=== PATIENT | female | born 1985 | race Caucasian/White ===

== ENCOUNTER 2021-02-13 10:42 | Emergency (ER) | payer SELFPAY ==
--- NOTE | 2021-02-13 11:20 | EDM.PDOC ---
ED HPI GENERAL MEDICAL PROBLEM - General Chief Complaint: DIGESTER HAND Problem Stated Complaint: [facility] Time Seen by Provider: 02/13/21 10:46 Source of Information: Reports: Patient, EMS, RN Notes Reviewed History Limitations: Reports: No Limitations - History of Present Illness INITIAL COMMENTS - FREE TEXT/NARRATIVE: Brought in by ambulance with acute onset of left lower pelvic pain. Onset was about 7:00 this morning woke her up. Very sharp stabbing constant pain. Not associated with any fevers or chills. She received some fentanyl in the prehospital and did not really help. She denies having had any obvious fevers or chills may be some cold sweats with the pain nauseated but no vomiting no bowel changes. No burning pain or blood in the urine denies has had regular normal cycles. She did states that she has had an ovarian torsion before but never required any surgical treatment. She has had a cholecystectomy appendectomy and 2 C-sections. Currently denies any fevers chills or sweats no runny nose or sore throat no coughing cold symptoms or chest pain. No known allergies. Pain is sharp constant nothing makes it better or worse - Related Data Allergies Allergy/AdvReac Type Severity Reaction Status Date / Time metoclopramide [From Reglan] Allergy Wheezing Verified 02/13/21 10:54 NSAIDS (Non-Steroidal Allergy Wheezing Verified 02/13/21 10:54 Anti-Inflamma Penicillins Allergy Wheezing Verified 02/13/21 10:54 Home Meds: Home Meds . [No Known Home Meds] 02/13/21 [History] Past Medical History HEENT History: Reports: Other (See Below) Other HEENT History: glasses - Past Surgical History Female Surgical History: Reports: Other (See Below) Other Female Surgeries/Procedures: hx of ovarian cysts 2 years ago to LT side, right twisted ovary surgery Social & Family History - Tobacco Use Tobacco Use Status *Q: Never Tobacco User Second Hand Smoke Exposure: No - Caffeine Use Caffeine Use: Reports: Coffee - Recreational Drug Use Recreational Drug Use: No ED ROS GENERAL - Review of Systems Review Of Systems: See Below Constitutional: Reports: Diaphoresis. Denies: Fever, Chills HEENT: Denies: Rhinitis, Throat Pain Respiratory: Denies: Shortness of Breath, Cough Cardiovascular: Denies: Chest Pain, Dyspnea on Exertion GI/Abdominal: Reports: Abdominal Pain, Nausea. Denies: Bloody Stool, Diarrhea, Vomiting : Denies: Dysuria Musculoskeletal: Reports: No Symptoms Skin: Reports: No Symptoms Neurological: Reports: No Symptoms Psychiatric: Reports: Anxiety ED EXAM, RENAL/ - Physical Exam Exam: See Below Exam Limited By: No Limitations General Appearance: Alert, WD/WN, No Apparent Distress, Moderate Distress Throat/Mouth: Normal Oropharynx Head: Atraumatic Respiratory/Chest: No Respiratory Distress, Lungs Clear, Normal Breath Sounds Cardiovascular: Normal Peripheral Pulses, Regular Rate, Rhythm, No Edema GI/Abdominal: Normal Bowel Sounds, Soft, Tender, Other (Patient has a left lower pelvic pain. Nothing makes it better or worse sharp constant, no flank pain noted. No rebound or rigidity). No: Guarding, Rebound Back Exam: Normal Inspection Extremities: Normal Inspection Neurological: Alert, Oriented Psychiatric: Anxious Course - Vital Signs Text/Narrative:: Cute onset of pelvic pain rule out torsion, ovarian cyst, seems unlikely diverticulitis no GI symptoms currently. We will treated with pain, ultrasound labs ordered. Last Recorded V/S: Last Vital Signs Temp 98.6 F 02/13/21 10:47 Pulse 105 H 02/13/21 10:47 Resp 20 02/13/21 10:47 BP 114/67 02/13/21 10:47 Pulse Ox 98 02/13/21 10:47 - Orders/Labs/Meds Orders: Active Orders 24 hr Category Date Time Status Abdomen Pelvis wo Cont [CT] Stat Exams 02/13/21 14:27 Ordered CULTURE URINE [MREF] Stat Lab 02/13/21 11:40 Received Labs: Laboratory Tests 02/13/21 02/13/21 02/13/21 Range/Units 11:03 11:40 11:40 WBC (3.98-10.04) K/mm3 RBC (3.98-5.22) M/mm3 Hgb (11.2-15.7) gm/dl Hct (34.1-44.9) % MCV (79.4-94.8) fl MCH (25.6-32.2) pg MCHC (32.2-35.5) g/dl RDW Std Deviation (36.4-46.3) fL Plt Count (182-369) K/mm3 MPV (9.4-12.3) fl Neut % (Auto) (34.0-71.1) % Lymph % (Auto) (19.3-51.7) % [place] % (Auto) (4.7-12.5) % Eos % (Auto) (0.7-5.8) Baso % (Auto) (0.1-1.2) % Neut # (Auto) (1.56-6.13) K/mm3 Lymph # (Auto) (1.18-3.74) K/mm3 [place] # (Auto) (0.24-0.36) K/mm3 Eos # (Auto) (0.04-0.36) K/mm3 Baso # (Auto) (0.01-0.08) K/mm3 Sodium (136-145) mEq/L Potassium (3.5-5.1) mEq/L Chloride (98-107) mEq/L Carbon Dioxide (21-32) mEq/L Anion Gap (5-15) BUN (7-18) mg/dL Creatinine (0.55-1.02) mg/dL Est Cr Clr Drug Dosing mL/min Estimated GFR (MDRD) (>60) mL/min BUN/Creatinine Ratio (14-18) Glucose (70-99) mg/dL Calcium (8.5-10.1) mg/dL Total Bilirubin (0.2-1.0) mg/dL AST (15-37) U/L ALT (14-59) U/L Alkaline Phosphatase (46-116) U/L Total Protein (6.4-8.2) g/dl Albumin (3.4-5.0) g/dl Globulin gm/dL Albumin/Globulin Ratio (1-2) Urine Color Yellow (Yellow) Urine Appearance Slt cloudy H (Clear) Urine pH 6.0 (5.0-8.0) Ur Specific [place] 1.025 (1.005-1.030) Urine Protein Trace H (Negative) Urine Glucose (UA) Negative (Negative) Urine Ketones Negative (Negative) Urine Occult Blood 3+ H (Negative) Urine Nitrite Negative (Negative) Urine Bilirubin Negative (Negative) Urine Urobilinogen 0.2 (0.2-1.0) Ur Leukocyte Esterase 1+ H (Negative) Urine RBC 50-75 H (0-5) /hpf Urine WBC 0-5 (0-5) /hpf Ur Epithelial Cells 5-10 H (0-5) /hpf Urine Bacteria Few (FEW) /hpf Urine Mucus Few (FEW) /hpf Urine HCG, Qual Negative (NEGATIVE) SARS-CoV-2 RNA (SILVANO) Negative (NEGATIVE) 02/13/21 02/13/21 Range/Units 13:02 13:02 WBC 4.44 (3.98-10.04) K/mm3 RBC 4.47 (3.98-5.22) M/mm3 Hgb 11.4 (11.2-15.7) gm/dl Hct 36.2 (34.1-44.9) % MCV 81.0 (79.4-94.8) fl MCH 25.5 L (25.6-32.2) pg MCHC 31.5 L (32.2-35.5) g/dl RDW Std Deviation 42.3 (36.4-46.3) fL Plt Count 275 (182-369) K/mm3 MPV 8.6 L (9.4-12.3) fl Neut % (Auto) 66.5 (34.0-71.1) % Lymph % (Auto) 25.2 (19.3-51.7) % [place] % (Auto) 6.1 (4.7-12.5) % Eos % (Auto) 1.8 (0.7-5.8) Baso % (Auto) 0.2 (0.1-1.2) % Neut # (Auto) 2.95 (1.56-6.13) K/mm3 Lymph # (Auto) 1.12 L (1.18-3.74) K/mm3 [place] # (Auto) 0.27 (0.24-0.36) K/mm3 Eos # (Auto) 0.08 (0.04-0.36) K/mm3 Baso # (Auto) 0.01 (0.01-0.08) K/mm3 Sodium 141 (136-145) mEq/L Potassium 3.6 (3.5-5.1) mEq/L Chloride 107 (98-107) mEq/L Carbon Dioxide 26 (21-32) mEq/L Anion Gap 11.6 (5-15) BUN 10 (7-18) mg/dL Creatinine 0.8 (0.55-1.02) mg/dL Est Cr Clr Drug Dosing 70.50 mL/min Estimated GFR (MDRD) > 60 (>60) mL/min BUN/Creatinine Ratio 12.5 L (14-18) Glucose 89 (70-99) mg/dL Calcium 7.7 L (8.5-10.1) mg/dL Total Bilirubin 0.4 (0.2-1.0) mg/dL AST 15 (15-37) U/L ALT 15 (14-59) U/L Alkaline Phosphatase 70 (46-116) U/L Total Protein 6.3 L (6.4-8.2) g/dl Albumin 2.9 L (3.4-5.0) g/dl Globulin 3.4 gm/dL Albumin/Globulin Ratio 0.9 L (1-2) Urine Color (Yellow) Urine Appearance (Clear) Urine pH (5.0-8.0) Ur Specific [place] (1.005-1.030) Urine Protein (Negative) Urine Glucose (UA) (Negative) Urine Ketones (Negative) Urine Occult Blood (Negative) Urine Nitrite (Negative) Urine Bilirubin (Negative) Urine Urobilinogen (0.2-1.0) Ur Leukocyte Esterase (Negative) Urine RBC (0-5) /hpf Urine WBC (0-5) /hpf Ur Epithelial Cells (0-5) /hpf Urine Bacteria (FEW) /hpf Urine Mucus (FEW) /hpf Urine HCG, Qual (NEGATIVE) SARS-CoV-2 RNA (SILVANO) (NEGATIVE) Meds: Medications Discontinued Medications Generic Name Dose Route Start Last Admin Trade Name José Manuelq PRN Reason Stop Dose Admin Chlorpromazine HCl Confirm 02/13/21 12:09 02/13/21 12:40 Chlorpromazine 25 Mg/Ml Amp Administered 02/13/21 12:10 Not Given Dose 25 mg .ROUTE .STK-MED ONE Chlorpromazine HCl 25 mg 02/13/21 12:20 02/13/21 12:21 Chlorpromazine 25 Mg/Ml Amp IM 02/13/21 12:21 25 mg NOW STA Administration Diphenhydramine HCl 25 mg 02/13/21 13:12 02/13/21 13:51 Diphenhydramine 50 Mg/Ml Sdv IVPUSH 02/13/21 13:13 25 mg ONETIME ONE Administration Hydromorphone HCl 1 mg 02/13/21 11:23 02/13/21 11:29 Hydromorphone 1 Mg/Ml Syringe IVPUSH 02/13/21 11:24 1 mg ONETIME ONE Administration Hydromorphone HCl 1 mg 02/13/21 12:38 02/13/21 12:43 Hydromorphone 1 Mg/Ml Syringe IVPUSH 02/13/21 12:39 1 mg ONETIME ONE Administration Sodium Chloride 1,000 mls @ 999 mls/hr 02/13/21 11:23 02/13/21 11:29 Normal Saline IV 02/13/21 12:23 999 mls/hr ONETIME ONE Administration Ondansetron HCl 4 mg 02/13/21 11:23 02/13/21 11:29 Ondansetron 4 Mg/2 Ml Sdv IVPUSH 02/13/21 11:24 4 mg ONETIME ONE Administration - Radiology Interpretation Free Text/Narrative:: Patient has a extremely exaggerated pain pattern she actually was on the floor in the bathroom crying teary-eyed she was able to get back into the bed. She continues to have severe left lower pelvic pain. She was unable to tolerate vaginal probe pelvic ultrasound. We have given her some Thorazine along with the 2 doses of IV Dilaudid. She apparently is allergic to nonsteroidal anti- inflammatory medications. We may need to jump to a CT scan and make sure were not looking at the kidney stone as she does have quite a few red blood cells in her urine. - Re-Assessments/Exams Free Text/Narrative Re-Assessment/Exam: 02/13/21 13:37 Patient has required a lot of pain management, have a given her 2 doses of Dilaudid, she got itchy and got Benadryl. She was able to get the ultrasound waiting the results. Her urinalysis actually shows white a bit of red blood cells may consider CT scan if her ultrasound is unremarkable. 02/13/21 14:39 Went back into check on the patient and she actually left her with her partner. Her ultrasound showed within normal limits left ovary no signs of torsion. She did have hematuria and was going to do a CT scan. Patient left without signing discharge paperwork Departure - Departure Time of Disposition: 14:40 Disposition: Eloped 07 Condition: Fair Clinical Impression: Pelvic pain - Discharge Information Referrals: PCP,None [Primary Care Provider] - Forms: ED Department Discharge Sepsis Event Note (ED) - Focused Exam Vital Signs: Vital Signs Temp Pulse Resp BP Pulse Ox 02/13/21 10:47 98.6 F 105 H 20 114/67 98 - My Orders Last 24 Hours: My Active Orders 02/13/21 11:40 CULTURE URINE [MREF] Stat 02/13/21 14:27 Abdomen Pelvis wo Cont [CT] Stat - Assessment/Plan Last 24 Hours: My Active Orders 02/13/21 11:40 CULTURE URINE [MREF] Stat 02/13/21 14:27 Abdomen Pelvis wo Cont [CT] Stat
[2021-02-13] MEDS ORDERED: Sodium Chloride 0.9% 1,000 ML IV ONE (11:23)
[2021-02-13] MEDS ORDERED: HYDROmorphone 1 MG/ML Syringe IVPUSH ONE ×2 (11:23→12:38)
[2021-02-13] MEDS ORDERED: Ondansetron 4 MG/2 ML SDV IVPUSH ONE (11:23)
[2021-02-13] MEDS ORDERED: diphenhydrAMINE 50 MG/ML SDV IVPUSH ONE (13:12)
--- NOTE | 2021-02-13 14:02 | US ---
Pelvic ultrasound: Multiple real-time images were obtained transvaginally. Additional transabdominal imaging were also obtained. Comparison: No prior pelvic imaging is available. Uterus is anteverted. No discrete myometrial abnormality is seen. Endometrial thickness is 7.7 mm. Nabothian cysts are present. Right ovary is not well seen. Left ovary appears within normal limits. No free fluid is seen. Measurements: Left ovary: 3.7 x 2.7 x 3.9 cm Uterus: Length 8.2 cm, AP height 4.1 cm, transverse width 4.4 cm Impression: 1. Nonvisualized right ovary. 2. Left ovary appears within normal limits. 3. Incidental nabothian cysts. Diagnostic code #2
== END 2021-02-13 14:44 | disposition left against medical advice (07) ==
LOC: JD.ED 10:42
DX: R10.2 Pelvic and perineal pain (principal); Z20.822 Contact with and (suspected) exposure to COVID-19; Z88.0 Allergy status to penicillin; Z88.8 Allergy status to other drugs, medicaments and biological substances
CPT/HCPCS: 36415; 76856; 80053; 81001; 81025; 85025; 87086; 87635; 96372; 96374; 96375; 96376; 99285; J1170; J1200; J2405; J3230; J7030; U0002